=== PATIENT | male | born 1975 | race Two or more races ===

== ENCOUNTER 2023-07-09 10:40 | Emergency (ER) | payer MEDICARE, MEDICAID, SELFPAY ==
[2023-07-09 11:08] VITALS: BP 124/82; PULSE 69; RESP 18; TEMP 36.9; O2SAT 99; BMI 25.1
[2023-07-09 11:26] LABS: MANUAL DIFF FLAG NO
[2023-07-09 11:30] LABS: Basophils Absolute Auto 0.1 X10*3/uL (0.0-0.2); Basophils Percent Auto 0.8 % (0-2); Eosinophils Absolute Auto 0.2 X10*3/uL (0.0-0.4); Eosinophils Percent Auto 3.6 % (0-4); Hematocrit 49.1 % (42.0-52.0); Imm Gran Abs Auto 0.01 X10*3/uL (0.00-0.03); Imm Gran Pct Auto 0.2 % (0.0-0.4); Lymphocytes Absolute Auto 2.4 X10*3/uL (1.2-4.9); Lymphocytes Percent Auto 38.2 % (20-40); Mean Corpuscular HGB Conc 34.6 g/dl (31.0-36.0); Mean Corpuscular Hemoglobin 30.6 pg (27.0-33.0); Mean Corpuscular Volume 88.5 fL (80.0-98.0); Mean Platelet Volume 10.1 fL (9.4-12.4); Monocytes Absolute Auto 0.4 X10*3/uL (0.1-1.2); Monocytes Percent Auto 5.7 % (2-11); Neutrophils Absolute Auto 3.2 x10*3/uL (2.0-8.3); Neutrophils Percent Auto 51.5 % (45-73); Platelet Count 201 X10*3/uL (160-400); Red Blood Count 5.55 X10*6/uL (4.60-5.80); Red Cell Distribution Width 12.3 % (11.0-16.0); White Blood Count 6.2 X10*3/uL (4.8-10.8)
[2023-07-09 11:43] LABS: IDNOW Serial# 08D9AD1C; Strep A Nucleic Acid Negative (Negative)
--- NOTE | 2023-07-09 11:44 | ED.GENADULT ---
HPI - General Adult General Chief complaint: Ear Problems Stated complaint: pain in r side of throat Time Seen by Provider: 07/09/23 11:27 Source: patient Mode of arrival: ambulatory Limitations: no limitations History of Present Illness HPI narrative: 47-year-old male presents with right-sided neck pain, patient reports that this has been going on for 2-3 months, he reports that started after he stops smoking, patient reports that pain is worse with movement better at rest. He tells me that he thinks he woke up with this 1 day common it felt very tight. He reports he feels like his neck is slightly stiff. He describes intermittent shooting pains however constant discomfort. He also reports intermittent sore throat, also started status post quitting smoking. Patient denies fevers, chills, headache, vision changes, dizziness, weakness, nausea, vomiting, chest pain, shortness of breath, unintentional weight loss, night sweats, excessive fatigue, abdominal pain Related Data Previous Rx's Medication Instructions Recorded cyclobenzaprine 10 mg tablet 10 mg PO BEDTIME PRN muscle spasm 07/09/23 #7 tabs lidocaine 5 % topical patch 1 patch topical DAILY PRN pain #15 07/09/23 ea Allergies Allergy/AdvReac Type Severity Reaction Status Date / Time No Known Allergies Allergy Verified 07/09/23 11:07 Review of Systems Review of Systems: Constitutional : No Weight loss, No Fever, No Chills, No Fatigue, No Malaise ENT/Mouth : No sore throat, No Rhinorrhea Eyes: No Eye Pain, No Swelling, No Redness Cardiovascular : No Chest Pain, No SOB, No Dyspnea on Exertion, No Orthopnea, No Edema, No Palpitations Respiratory : No Cough, No Sputum, No Wheezing Gastrointestinal : No Nausea, No Vomiting, No Diarrhea, No Constipation, No abdominal Pain, No Hematochezia, No Melena Genitourinary : No Dysuria, No Urinary Frequency, No Hematuria, Musculoskeletal : No joint pain, No Myalgias, No Joint Swelling, + neck pain Skin : No Skin Lesions, No rash Neuro : No Weakness, No Numbness, No Dizziness, No Headache Psych : No Anxiety/Panic, No Depression All other systems reviewed and are negative Yes all other systems are reviewed and are negative [facility] Past Medical History Attestation statement: The following information was validated with the patient. Source: old records reviewed and nursing notes reviewed Social History Social History Advance Directives: No Physical Exam ED Vital Signs: Vital Signs - 24 hr 07/09/23 11:08 Temperature 98.5 F Pulse Rate 69 Respiratory Rate 18 Blood Pressure 124/82 Pulse Oximetry 99 Oxygen Delivery Method Room Air BMI result Body Mass Index 25.1 vss Appearance: Alert.? Oriented X3.? No acute distress.? Head: Normocephalic, atraumatic, no step-offs or deformities Eyes: Pupils equal, round and reactive to light.? ENT: Pharynx normal.? Uvula midline. Normal tonsils bilaterally, no signs of abscess, no edema, erythema or exudate. Neck: Normal inspection.? Neck supple.?+ Right-sided cervical paraspinous muscle tenderness on palpation. No midline tenderness. Negative Kernig and Brudzinski. No meningeal signs. CVS: Normal heart rate and rhythm.? Pulses normal.? Respiratory: No respiratory distress.? Breath sounds normal.? Abdomen: Soft and nontender.? Skin: Skin warm and dry.? Normal skin color.? Normal skin turgor.? Extremities: No lower extremity edema.? No calf ttp. 5/5 strength to bilateral upper and lower extremities Neuro: Oriented X 3.? No motor deficit.? No sensory deficit. CN 2-12 intact Medical Decision Making Medical Decision Making [facility] Narrative: 1152 47-year-old male presents with right-sided neck pain and intermittent sore throat after stopping smoking Physical examination with right-sided cervical paraspinous tenderness throughout, no midline tenderness. This is likely cervical paraspinous muscle spasms, no signs of epidural abscess, cord compression. Sore throat likely secondary to referred pain from neck pain, unlikely peritonsillar abscess, retropharyngeal abscess, epiglottitis, threatened airway. Unlikely strep throat. This could be secondary to smoking. Malignancy cannot be ruled out however denies red flag symptoms. Unlikely carotid dissection. no signs of encephalitis or meningitis Labs obtained from triage, unremarkable. Negative strep. Plan at this time will discharge with cyclobenzaprine, Lidoderm patches will have him follow up with PCP within a week. Educated patient on diagnosis and treatment plan, answered all question, patient verbalizes understanding. At this time patient will be discharged home, advised to return with new or worsening symptoms. Educated on worrisome signs and symptoms and when to return. At this time I feel comfortable discharge home. Differential Diagnosis Differential Diagnoses: The differential diagnosis associated with the presentation includes This is likely cervical paraspinous muscle spasms, no signs of epidural abscess, cord compression. Sore throat likely secondary to referred pain from neck pain, unlikely peritonsillar abscess, retropharyngeal abscess, epiglottitis, threatened airway. Unlikely strep throat. This could be secondary to smoking. Malignancy cannot be ruled out however denies red flag symptoms. Unlikely carotid dissection.no signs of encephalitis or meningitis Admission/Observation Consideration of admission/observation: Escalation of care including admission/observation considered no indication Lab Data MDM Lab Attestation statement: I reviewed the patient's lab results. 07/09/23 11:19 07/09/23 11:19 Labs: Lab Results 07/09/23 Range/Units 11:19 WBC 6.2 (4.8-10.8) X10*3/uL RBC 5.55 (4.60-5.80) X10*6/uL Hgb 17.0 (14.0-18.0) g/dl Hct 49.1 (42.0-52.0) % MCV 88.5 (80.0-98.0) fL MCH 30.6 (27.0-33.0) pg MCHC 34.6 (31.0-36.0) g/dl RDW 12.3 (11.0-16.0) % Plt Count 201 (160-400) X10*3/uL MPV 10.1 (9.4-12.4) fL Immature Gran % (Auto) 0.2 (0.0-0.4) % Neut % (Auto) 51.5 (45-73) % Lymph % (Auto) 38.2 (20-40) % [place] % (Auto) 5.7 (2-11) % Eos % (Auto) 3.6 (0-4) % Baso % (Auto) 0.8 (0-2) % Lymph # (Auto) 2.4 (1.2-4.9) X10*3/uL [place] # (Auto) 0.4 (0.1-1.2) X10*3/uL Eos # (Auto) 0.2 (0.0-0.4) X10*3/uL Baso # (Auto) 0.1 (0.0-0.2) X10*3/uL Abs Immat Gran (auto) 0.01 (0.00-0.03) X10*3/uL Absolute Neuts (auto) 3.2 (2.0-8.3) x10*3/uL Absolute Nucleated RBC 0.000 (0.0-0.012) X10*3/uL Nucleated RBC % (auto) 0.0 (0.0-0.2) /100WBC Sodium 139 (135-145) mmol/L Potassium 4.9 (3.3-5.1) mmol/L Chloride 105 (96-108) mmol/L Carbon Dioxide 27 (22-29) mmol/L Anion Gap 12 (12-20) BUN 13 (9-16) mg/dL Creatinine 0.86 (0.5-1.4) mg/dL Estim Creat Clear Calc 106.1 Estimated GFR > 60 Random Glucose 151 H (60-115) mg/dL Calcium 10.0 (8.4-10.2) mg/dL Magnesium 1.9 (1.6-2.6) mg/dL Total Bilirubin 0.5 (0.0-1.0) mg/dL AST 18 (5-37) U/L ALT 31 (0-40) U/L Alkaline Phosphatase 49 (39-117) U/L Total Protein 8.1 H (6.5-8.0) g/dL Albumin 4.7 (3.5-5.0) g/dL S. pyogenes GrpA POLINA Negative (Negative) Tests considered The following testing was considered but not selected: No indication for CT or CTA, I do not suspect dissection, no signs of abscess. Unlikely retropharyngeal or peritonsillar abscess. Core Measures AMI core measures followed: Yes Measure exclusions: not indicated Discharge Plan Discharge Clinical Impression: Cervical paraspinal muscle spasm Patient Disposition: Home, Self-Care Instructions: Muscle Spasm (ED) Additional Instructions: Take your medications as prescribed. If you were prescribed antibiotics today, it is important that you take your medication to their entirety, do not skip any doses, do not finish them early. Follow-up with your primary care provider this week. Return to the emergency department with new or worsening symptoms. Such as fevers, chills, chest pain, shortness of breath, nausea, vomiting, dizziness, headache, vision changes, lethargy In case of emergency call 911 Follow up with PCP if your concerned about cancer, this requires further evaluation and it is not diagnosed in an emergency department typically Cyclobenzaprine is a muscle relaxer it can make a drowsy, please do not take this while driving or operating machinery, do not take with other sedatives or alcohol Prescriptions: New cyclobenzaprine 10 mg tablet 10 mg PO BEDTIME PRN (Reason: muscle spasm) Qty: 7 0RF lidocaine 5 % adhesive patch,medicated 1 patch topical DAILY PRN (Reason: pain) Qty: 15 0RF Rx Instructions: leave on most painful area for up to 12 hrs Referrals: Neeru Andres MD [Primary Care Provider] - 2 days Stand Alone Forms: Work/School Release
[2023-07-09 11:50] LABS: Alanine Aminotransferase 31 U/L (0-40); Albumin Level 4.7 g/dL (3.5-5.0); Alkaline Phosphatase 49 U/L (39-117); Anion Gap 12 (12-20); Aspartate Amino Transferase 18 U/L (5-37); Bilirubin Total 0.5 mg/dL (0.0-1.0); Blood Urea Nitrogen 13 mg/dL (9-16); Carbon Dioxide 27 mmol/L (22-29); Chloride 105 mmol/L (96-108); Creatinine Clr Calc Pharmacy 106.1; Estimated Glomerular Filt Rate > 60; Glucose Random 151 mg/dL (60-115); Magnesium 1.9 mg/dL (1.6-2.6); Potassium 4.9 mmol/L (3.3-5.1); Sodium 139 mmol/L (135-145); Total Protein 8.1 g/dL (6.5-8.0)
[2023-07-09 12:11] LABS: TSH reflex Free T4 1.41 uIU/mL (0.32-4.0)
== END 2023-07-09 12:08 | disposition home or self-care (01) ==
PROVIDERS: Physician Assistant Medical; Emergency Provider Emergency Medicine; PCP Internal Medicine
DX: M62.830 Muscle spasm of back (principal); R07.0 Pain in throat; M54.2 Cervicalgia; H92.01 Otalgia, right ear; Z79.899 Other long term (current) drug therapy
CPT/HCPCS: 36415; 80053; 83735; 84443; 85025; 87651; 99282; 99283